=== PATIENT | female | born 2000 | race Caucasian/White ===

== ENCOUNTER 2024-04-18 19:06 | Inpatient (IN) | payer OTHER ==
[~2024-04-18] VITALS: Ht 157.5 cm; Wt 61.8 kg
[~2024-04-18 19:06] MED LIST: CEFD300 PO; Guanfacine HCl2 MG PO; ONDA4ODT MM; PERM5TC TOP
[2024-04-18 19:20] VITALS: BP 142/86
[2024-04-18 19:35] VITALS: BP 139/87
[2024-04-18 19:51] VITALS: BP 137/84
[2024-04-18 20:05] VITALS: BP 140/92
[2024-04-18 20:13] VITALS: BP 131/69
[2024-04-18 21:03] VITALS: BP 132/72
[2024-04-18] MEDS ORDERED: Zolpidem Tartrate 10 MG Tab PO ONE (21:45)
[2024-04-18] MEDS ORDERED: Methylergonovine Maleate 0.2MG / ML 1ML Amp IM PRN (22:45)
[2024-04-18] MEDS ORDERED: Misoprostol 200 MCG Tab BC PRN (22:45)
[2024-04-18] MEDS ORDERED: Oxytocin 10 Unit / ML Vial IM PRN (22:45)
[2024-04-18] MEDS ORDERED: Ondansetron HCl 2 MG / ML 2ML Vial IV PRN (22:45)
[2024-04-18] MEDS ORDERED: Lactated Ringer's 1,000 ML IV PRN (22:45)
[2024-04-18] MEDS ORDERED: Penicillin G Potassium 5,000,000 UNITS in NS 250 ML IV ONE (22:45)
[2024-04-18] MEDS ORDERED: Misoprostol 200 MCG Tab PR PRN (22:45)
[2024-04-18] MEDS ORDERED: Acetaminophen 500 MG Tab PO PRN (22:45)
[2024-04-18] MEDS ORDERED: Carboprost Tromethamine 250 MCG/ML 1ML Amp IM PRN (22:45)
[2024-04-18] MEDS ORDERED: OXYTOCIN/RINGER'S LACTATE 500 ML IV PRN (22:45)
[2024-04-18] MEDS ORDERED: FentaNYL Citrate 50 MCG/ML 2 ML Injection IV PRN (22:45)
[2024-04-18] MEDS ORDERED: Tranexamic Acid 100 ML IV SCH (22:45)
[2024-04-18] MEDS ORDERED: ePHEDrine Sulfate 50 MG/ML 1ML Injection XX PRN (22:50)
[2024-04-18] MEDS ORDERED: Calcium Carbonate 500 MG Tab Chew PO PRN (22:50)
[2024-04-18] MEDS ORDERED: FentaNYL 2mcg/ml-Bup 0.1% Epd 250 ML EPI PRN (22:50)
[2024-04-18] MEDS ORDERED: Lactated Ringer's 1,000 ML IV SCH ×2 (22:50)
[2024-04-18 23:26] LABS: BASOPHILS ABSOLUTE AUTO 0.07 K/mm3 (0.00-0.23); BASOPHILS PERCENT AUTO 0 % (0-2); EOSINOPHILS ABSOLUTE AUTO 0.05 K/mm3 (0.00-0.68); EOSINOPHILS PERCENT AUTO 0 % (0-6); Hematocrit 39.2 % (33.0-51.0); IMMATURE GRAN ABSOLUTE AUTO 0.26 K/mm3 (0.00-0.10); IMMATURE GRAN PERCENT AUTO 2 % (0-1); LYMPHOCYTES ABSOLUTE AUTO 2.23 K/mm3 (0.84-5.20); LYMPHOCYTES PERCENT AUTO 13 % (21-46); MONOCYTES ABSOLUTE AUTO 1.16 K/mm3 (0.16-1.47); MONOCYTES PERCENT AUTO 7 % (4-13); Mean Corpuscular HGB 32.9 pg (26.0-34.0); Mean Corpuscular HGB Conc 35.7 g/dL (31.5-36.5); Mean Corpuscular Volume 92 fL (80-100); Mean Platelet Volume 9.6 fL (9.1-12.4); NEUTROPHILS ABSOLUTE AUTO 13.89 K/mm3 (1.96-9.15); NEUTROPHILS PERCENT AUTO 79 % (41-73); Platelet Count 378 K/mm3 (150-400); RDW Coefficient Variation 11.6 % (11.7-14.2); RDW Standard Deviation 39.3 fL (35.1-46.3); Red Blood Cell Count 4.25 M/mm3 (3.80-5.20); White Blood Cell Count 17.66 K/mm3 (4.00-11.30)
[2024-04-19] VITALS (27 sets, daily range): BP systolic 109–156; BP diastolic 59–103
[2024-04-19] MEDS ORDERED: Penicillin G Potassium 2,500,000 UNITS in Dextrose 5% 100 ML IV SCH (04:00)
[2024-04-19] MEDS ORDERED: OXYTOCIN/RINGER'S LACTATE 500 ML IV SCH (12:20)
[2024-04-19] MEDS ORDERED: Ibuprofen 400 MG Tab PO PRN (15:35)
[2024-04-19] MEDS ORDERED: Measles/Mumps/Rubella Vaccine 0.5 ML Vial SC SCH (15:35)
[2024-04-19] MEDS ORDERED: Benzocaine Topical Anesthetic Spray 60GM TOP SCH (15:35)
[2024-04-19] MEDS ORDERED: Witch Hazel/Glycerin PADS TOP SCH (15:35)
[2024-04-19] MEDS ORDERED: Lanolin Cream TOP PRN (15:35)
[2024-04-19] MEDS ORDERED: Ketorolac Tromethamine 30mg Vial IV PRN (15:35)
[2024-04-19] MEDS ORDERED: Rho(D) Immune Globulin 300 MCG / SYR IM ONE (22:15)
[2024-04-20 00:30] VITALS: BP 109/56
[2024-04-20 04:45] VITALS: BP 136/75
[2024-04-20 07:49] VITALS: BP 149/85
[2024-04-20] MEDS ORDERED: Prenatal Vit/FE Fumarate/FA 1 Tab PO SCH (09:00)
[2024-04-20 12:42] VITALS: BP 140/92
--- NOTE | 2024-04-20 14:41 | NUR ---
DISCHARGE INSTRUCTIONS GIVEN. PT DENIES ANY FURTHER QUESTIONS. LEARNER VERBALIZED UNDERSTANDING.
[2024-04-20 16:35] VITALS: BP 139/93
--- NOTE | 2024-04-20 17:11 | NUR ---
bands matched and hugs removed
== END 2024-04-20 17:20 | disposition home or self-care (01) | DRG 807 ==
LOC: OBS 19:06 → BC 19:06 → OBS 22:46 → BC 22:47
PROVIDERS: ADMIT Advanced Practice Midwife
PROC: 3E0P7VZ Introduction of Hormone into Female Reproductive, Via Natural or Artificial Opening (ICD-10-PCS; 2024-04-18)
PROC: 10H07YZ Insertion of Other Device into Products of Conception, Via Natural or Artificial Opening (ICD-10-PCS; 2024-04-18)
PROC: 10E0XZZ Delivery of Products of Conception, External Approach (ICD-10-PCS; principal; 2024-04-19)
PROC: 00HU33Z Insertion of Infusion Device into Spinal Canal, Percutaneous Approach (ICD-10-PCS; 2024-04-19)
PROC: 3E0234Z Introduction of Serum, Toxoid and Vaccine into Muscle, Percutaneous Approach (ICD-10-PCS; 2024-04-19)
DX: O99.824 Streptococcus B carrier state complicating childbirth (principal); Z37.0 Single live birth; O99.02 Anemia complicating childbirth; O16.5 Unspecified maternal hypertension, complicating the puerperium; O76 Abnormality in fetal heart rate and rhythm complicating labor and delivery; O26.893 Other specified pregnancy related conditions, third trimester; Z67.41 Type O blood, Rh negative; Z3A.39 39 weeks gestation of pregnancy; Z79.899 Other long term (current) drug therapy
CPT/HCPCS: 36415; 51702; 59025; 81003; 85025; 85460; 86850; 86900; 86901; 90471; 90707; 99214; A9270; J1885; J2405; J2540; J2590; J2791; J7050; J7120